=== PATIENT | female | born 1950 | race Caucasian/White ===

== ENCOUNTER 2016-09-21 07:59 | Emergency (ER) | payer MEDICARE, OTHER ==
[2016-09-21 08:30] LABS: BASO # 0.1 10_X3_uL (0.0-0.1); BASO % 0.8 % (0.1-1.2); EOS # 0.1 10_X3_uL (0.0-0.4); EOS % 1.8 % (0.7-5.8); GRAN # 5.5 10_X3_uL (1.6-6.1); GRAN % 69.4 % (34.0-71.1); HEMATOCRIT 39.7 % (34-45); HEMOGLOBIN 13.3 g/dL (11.2-15.7); LYMPH # 1.3 10_X3_uL (1.2-3.7); LYMPH % 15.8 % (19.3-51.7); MEAN CORPUSCULAR HEMOGLOBIN 31.8 pg (27.0-33.0); MEAN CORPUSCULAR HGB CONC 33.5 g/dL (32.0-36.0); MEAN PLATELET VOLUME 10.1 fl (7.5-11.5); MONO % 12.2 % (4.7-12.5); PLATELET COUNT 449 x10_3/uL (182-369); RED BLOOD COUNT 4.18 x10_6/uL (3.9-5.2); RED CELL DISTRIBUTION WIDTH 16.8 % (11.7-14.4)
[2016-09-21 08:40] LABS: URINE BILIRUBIN 1+ (NEGATIVE); URINE BLOOD TRACE (NEGATIVE); URINE GLUCOSE (UA) NORMAL (NORMAL); URINE KETONE 2+ (NEGATIVE); URINE LEUKOCYTE ESTERASE 1+ (NEGATIVE); URINE NITRATE NEGATIVE (NEGATIVE); URINE PROTEIN 1+ (NEGATIVE)
[2016-09-21 08:45] LABS: ALBUMIN 4.1 gm/dL (3.4-5.0); ALKALINE PHOSPHATASE 61 U/L (50-136); ALT/SGPT 8 U/L (3.5-33.9); AMYLASE 45 U/L (15.62-74.58); AST/SGOT 28 U/L (7.04-26.96); BILIRUBIN,TOTAL 0.42 mg/dL (0.0-1.0); BLOOD UREA NITROGEN 15 mg/dL (7-18); CALCIUM 9.2 mg/dL (8.7-10.7); CARBON DIOXIDE 25 mmol/L (21-32); CREATININE 0.8 mg/dL (0.6-1.3); GLUCOSE,RANDOM 176 mg/dL (70-99); LIPASE 20 U/L (6.75-60.75); SODIUM 144 mmol/L (136-145); TOTAL PROTEIN 7.5 gm/dL (6.4-8.2)
[2016-09-21 08:51] LABS: POTASSIUM 5.3 mmol/L (3.5-5.1)
[2016-09-21 08:53] LABS: URINE RBC 0-5 /[HPF] (0-2); URINE SQUAMOUS EPITHELIAL CELL 0-10 /[HPF] (NONE SEEN)
[2016-09-21 08:54] LABS: URINE AMORPHOUS SEDIMENT 2+; URINE BACTERIA TRACE (NONE SEEN)
== END 2016-09-21 09:52 | disposition home or self-care (01) ==
LOC: ER 07:59
PROVIDERS: General Practice
DX: E86.0 Dehydration (principal); N39.0 Urinary tract infection, site not specified; B37.0 Candidal stomatitis; R11.10 Vomiting, unspecified; I10 Essential (primary) hypertension; Z85.818 Personal history of malignant neoplasm of other sites of lip, oral cavity, and pharynx; Z79.899 Other long term (current) drug therapy
CPT/HCPCS: 36415; 80053; 81001; 82150; 83690; 85025; 87086; 96361; 96374; 99070; 99283; 99283-25